=== PATIENT | female | born 1945 | race Caucasian/White ===

== ENCOUNTER → 2017-08-06 | Outpatient (CLI) | payer OTHER, BC ==
[~2017-08-06] MED LIST: CITRUCEL500 MG PO; CYMBALTA60 MG PO; DILAUDID2 M1 PO; FISH OIL 1,2001 EAC4 PO; LEVEMIR SUBQ; NOVOLOG100 UNIT/1 SUBQ; PRILOSEC 20 MG20 MG PO; SIMVASTATIN40 MG PO; VALIUM5 MG PO; VITAMIN D10000 UNIT PO; ZEBETA10 MG PO; ZIAC 10-6.25 M1 EACH PO
== END ==
LOC: RAD 14:35
DX: R05 Cough (principal); R50.9 Fever, unspecified

== ENCOUNTER → 2018-05-25 | Outpatient (CLI) | payer OTHER, BC | LOC: CAT 15:40 | DX: J01.00 Acute maxillary sinusitis, unspecified (principal) ==

== ENCOUNTER → 2019-07-14 | Outpatient (CLI) | payer OTHER, BC | LOC: RAD 16:08 | DX: R05 Cough (principal) ==

== ENCOUNTER → 2020-01-24 | Outpatient (CLI) | payer OTHER, BC ==
[~2020-01-24] MED LIST changes: +LANTUS SUBQ; +LEVO-T50 MCG PO; +ZANAFLEX4 M2 PO
[2020-01-24 11:00] VITALS: BP 164/70
[2020-01-24 12:35] VITALS: BP 169/72
--- NOTE | 2020-01-24 16:19 | NUR ---
IN FOR 1ST INJECTAFER INFUSION FOR IRON DEFICIENCY ANEMIA. PATIENT STATED FEELING WELL TODAY, HOWEVER HAS INTERMITTENT FATIGUE IN THE LAST FEW WEEKS. IV STARTED IN LEFT ARM. INFUSED INJECTAFER OVER 30 MINUTES AND TOLERATED WITHOUT INCIDENT. OBSERVED FOR 30 MINUTES. POST BP GOOD. REMOVED IV AND DISMISSED IN STABLE CONDITION. TO RETURN IN 2 WEEKS FOR SECOND DOSE WILL BE OUT OF TOWN UNTIL 02/06/20.
== END ==
LOC: OPONC 10:10 → EDSTATUS 10:11 → OPONC 10:12
PROVIDERS: ATTEND Internal Medicine
DX: D50.8 Other iron deficiency anemias (principal)
CPT/HCPCS: 95000

== ENCOUNTER → 2020-02-07 | Outpatient (CLI) | payer OTHER, BC ==
[2020-02-07 10:20] VITALS: BP 164/65
[2020-02-07 11:45] VITALS: BP 152/57
--- NOTE | 2020-02-07 11:50 | NUR ---
HERE FOR 2ND AND FINAL DOSE OF INJECTAFER. REPORTS TOLERATING FIRST DOSE WITHOUT ANY S/S REACTION. TOLERATED TODAY'S WITHOUT INCIDENT, NO S/S REACTION, VSS, WATCHED FOR 30MIN POST COMPLETION. PT ADVISED TO REACH OUT TO HER PCP TO DETERMINE F/U PLAN--LABS, NEED TO CONTINUE ORAL IRON? PT STATES SHE WILL DO THIS. DISMISSED IN STABLE CONDITION.
== END ==
LOC: OPONC 08:19
PROVIDERS: ATTEND Internal Medicine
DX: D50.8 Other iron deficiency anemias (principal)
CPT/HCPCS: 95000

== ENCOUNTER → 2020-07-17 | Outpatient (CLI) | payer OTHER, BC | LOC: RAD 15:29 | PROVIDERS: ATTEND Internal Medicine | DX: R05 Cough (principal) ==